=== PATIENT | female | born 1985 | race Caucasian/White ===

== ENCOUNTER → 2016-06-23 | Outpatient (CLI) | payer BC ==
[~2016-06-23] MED LIST: DOCO1CAP2; FE FCAP; OXYC1SOL5 PO; PREN0.01 PO
== END ==
LOC: HPND 08:07
PROVIDERS: ATTEND Obstetrics & Gynecology
DX: O34.211 Maternal care for low transverse scar from previous cesarean delivery (principal); Z36 Encounter for antenatal screening of mother
CPT/HCPCS: 36416; 76813

== ENCOUNTER → 2016-08-28 | Outpatient (CLI) | payer BC | LOC: HPND 10:25 | PROVIDERS: ATTEND Obstetrics & Gynecology | DX: O35.8XX0 Maternal care for other (suspected) fetal abnormality and damage, not applicable or unspecified (principal); O34.212 Maternal care for vertical scar from previous cesarean delivery; O26.842 Uterine size-date discrepancy, second trimester; Z3A.22 22 weeks gestation of pregnancy | CPT/HCPCS: 76805 ==

== ENCOUNTER → 2016-10-09 | Outpatient (CLI) | payer BC | LOC: HPND 09:54 | PROVIDERS: ATTEND Obstetrics & Gynecology | DX: O35.8XX0 Maternal care for other (suspected) fetal abnormality and damage, not applicable or unspecified (principal); O34.212 Maternal care for vertical scar from previous cesarean delivery; Z3A.28 28 weeks gestation of pregnancy | CPT/HCPCS: 76816 ==

== ENCOUNTER → 2016-11-10 | Outpatient (CLI) | payer BC | LOC: HPND 09:34 | PROVIDERS: ATTEND Obstetrics & Gynecology | DX: O26.843 Uterine size-date discrepancy, third trimester (principal); O34.212 Maternal care for vertical scar from previous cesarean delivery; O40.3XX0 Polyhydramnios, third trimester, not applicable or unspecified | CPT/HCPCS: 76816 ==